=== PATIENT | male | born 1950 | race Caucasian/White ===

== ENCOUNTER 2022-02-13 11:00 | Outpatient (RCR) | payer OTHER, SELFPAY | END 2022-03-20 09:55 | disposition home or self-care (01) | LOC: OT 11:00 | PROVIDERS: PCP Surgery; Visit Provider Orthopaedic Surgery Adult Reconstructive Orthopaedic Surgery | DX: M75.41 Impingement syndrome of right shoulder (principal) | CPT/HCPCS: 97010; 97014; 97110; 97140; 97164; 97165; 97530; G0283 ==

== ENCOUNTER 2025-02-15 14:44 | Emergency (ER) | payer OTHER, SELFPAY ==
[2025-02-15] VITALS (10 sets, daily range): BP systolic 102–147; BP diastolic 56–121; PULSE 57–91; RESP 13–26; TEMP 36.7–36.8; O2SAT 89–95; BMI 34.0
--- NOTE | 2025-02-15 14:49 | ED_ITS ---
<Statement entered by Severino Barclay MD - 02/15/25 20:23> TYRONE Attestation I was consulted by the TYRONE, and we discussed the complexity of problems being addressed. I approved the treatment and management plan for this patient's care in the emergency department, thus performing a substantial portion of the medical decision making. Severino Barclay MD Discharge Plan Disposition Patient Disposition: Home, Self-Care Condition: Good Prescriptions Prescriptions: New methocarbamol 750 mg tablet 750 mg PO Q6H PRN (Reason: muscle spasm) Qty: 20 0RF lidocaine 5 % adhesive patch,medicated 1 patch topical DAILY Qty: 30 0RF Rx Instructions: leave on most painful area for up to 12 hrs Referrals Follow up/Referrals: Shira Robbins APRN [Primary Care Provider] - See instructions Activity Restrictions/Add. Instructions Additional Instructions/Restrictions: As we discussed the neurosurgery team at recommended a repeat CAT scan in 1 week to evaluate the stability of your subdural hemorrhage. If you have any change in your level of consciousness awareness intractable headache intractable vomiting return to the emergency department. I have sent in a Lidoderm patch and muscle relaxer for your left posterior thoracic pain. Also recommend taking Tylenol. I do not recommend ibuprofen and you please hold your aspirin until your repeat scan. If you have continued new or worsening signs or symptoms follow-up with your PCP or return to the ER as needed. Clinical Impressions Clinical Impression: Subarachnoid hemorrhage Left-sided thoracic back pain Qualifiers: Chronicity: acute Qualified Code(s): M54.6 - Pain in thoracic spine Fall Qualifiers: Encounter type: initial encounter Qualified Code(s): W19.XXXA - Unspecified fall, initial encounter Instructions Patient Instructions: DI for Stroke-Subarachnoid Hemorrhage Print Language Print Language: Indonesian Discharge ED Provider: Severino Barclay General Adult HPI General Chief complaint: Fall Stated complaint: AO 02/13/25 L side pain. Time Seen by Provider: 02/15/25 14:49 History of Present Illness HPI narrative: Patient presents for evaluation of left-sided thoracic back pain. Patient was on a riding lawnmower and slid off of it. He was not struck by the lawnmower however he ended up sliding down a hill on his left side. He initially thought he suffered no injury however in the 3 days since he has had increasing posterior thoracic left-sided pain. He denies any loss of consciousness head injury C-spine tenderness any difficulty walking in a painful walking shortness of breath fever chills hemoptysis hematochezia melena nausea vomiting diarrhea. He does have a history of COPD but is not on home O2. He does have a home nebulizer machine that he can utilize but does not have to use it all the time. Related Data Previous Rx's ?Medication ?Instructions ?Recorded lidocaine 5 % topical patch 1 patch topical DAILY #30 ea 02/15/25 methocarbamol 750 mg tablet 750 mg PO Q6H PRN muscle spasm #20 02/15/25 tabs Allergies Allergy/AdvReac Type Severity Reaction Status Date / Time IODINE Allergy Severe SHOCK Uncoded 10/15/17 14:06 PENICILLIN Allergy Intermediate I-HIVES Uncoded 10/15/17 14:06 [facility] Disclaimer: The information contained in this section may have been updated after the patient was seen, as this information can be updated by other users. Social History (Updated 02/15/25 @ 19:22 by KADI Suarez) Smoking Status: Current every day smoker alcohol intake: never current occupational status: retired Travel in the last 8 weeks: None Have you lived/traveled outside [place] in past 30 days?: No Contact w/someone who lives/traveled outside US past 30 days?: No Exposure to someone with infectious disease in past 14 days?: No Do you have a fever (greater than 100.4 F or 38 C)?: No Have you tested positive for COVID-19: No Exposed to someone with COVID-19 in past 14 days?: No Do you have a sore throat?: No Do you have a cough?: No Do you have any weakness?: No Do you have any diarrhea?: No Are you experiencing any unusual bleeding?: No Do you have any muscle aches/pain?: No Do you have any abdominal pain?: No Are you experiencing loss of taste or smell?: No ROS Obtained: Yes Systems reviewed as appropriate & no additional complaints except as documented Physical Exam General General appearance: alert and in no apparent distress Respiratory Respiratory exam: Absent respiratory distress, wheezes or accessory muscle use Cardiovascular Cardiovascular exam: Present regular rate Neurological Exam Neurological exam: Present alert, oriented X3, CN II-XII intact and normal gait; Absent motor sensory deficit Medical Decision Making Medical Records Medical records reviewed: Yes I reviewed the patient's medical records. Screening: Per USPSTF and CDC recommendations, given the prevalence of disease in our region, it is our hospital?s policy to screen for HIV and viral Hepatitis for all patients aged 18 and over and those with ongoing risk factors. Kirk Inquiry Pt receiving controlled substance: No Vital Signs: 02/15/25 14:45 02/15/25 14:54 02/15/25 14:57 Temperature 98.3 F Temperature Source Oral Pulse Rate 66 85 Pulse Rate [Right] 91 H Respiratory Rate 26 H Blood Pressure 141/121 H 147/89 H Blood Pressure [Right Arm] 141/85 H Blood Pressure Mean [Right Arm] 103 Blood Pressure Source [Right Arm] Automatic Cuff 02 Sat by Pulse Oximetry 91 L 93 L 92 L Oxygen Delivery Method Room Air Room Air Room Air 02/15/25 15:01 02/15/25 16:00 02/15/25 16:31 Temperature Temperature Source Pulse Rate 81 66 81 Pulse Rate [Right] Respiratory Rate Blood Pressure 139/82 125/63 106/64 L Blood Pressure [Right Arm] Blood Pressure Mean [Right Arm] Blood Pressure Source [Right Arm] 02 Sat by Pulse Oximetry 92 L 90 L 89 L Oxygen Delivery Method Room Air Room Air Room Air 02/15/25 17:00 02/15/25 17:30 02/15/25 18:36 Temperature Temperature Source Pulse Rate 59 L 57 L 71 Pulse Rate [Right] Respiratory Rate Blood Pressure 102/56 L 114/65 138/61 Blood Pressure [Right Arm] Blood Pressure Mean [Right Arm] Blood Pressure Source [Right Arm] 02 Sat by Pulse Oximetry 91 L 91 L 93 L Oxygen Delivery Method Room Air Room Air Room Air 02/15/25 19:04 Temperature 98.0 F Temperature Source Pulse Rate 76 Pulse Rate [Right] Respiratory Rate 13 Blood Pressure 138/61 Blood Pressure [Right Arm] Blood Pressure Mean [Right Arm] Blood Pressure Source [Right Arm] 02 Sat by Pulse Oximetry Oxygen Delivery Method Lab Data Lab results reviewed: Yes I reviewed the patient's lab results. Lab Results 02/15/25 15:41: WBC 11.4 H, RBC 4.50 L, Hgb 14.4, Hct 43.6, MCV 96.9 H, MCH 32.0 H, MCHC 33.0, RDW 13.1, Plt Count 245, MPV 10.5 H, Neut % (Auto) 74.3, Lymph % (Auto) 14.3, [place] % (Auto) 7.9, Eos % (Auto) 2.8, Baso % (Auto) 0.5, Neut # (Auto) 8.5 H, Lymph # (Auto) 1.6, [place] # (Auto) 0.9, Eos # (Auto) 0.3, Baso # (Auto) 0.1, PT 11.3, INR 1.01, D-Dimer 1.31 H, Sodium 139, Potassium 4.3, Chloride 102, Carbon Dioxide 30, Anion Gap 11.3, BUN 12, Creatinine 1.00, Estimated Creat Clear 93, Estimated GFR 73, Est GFR ( Amer) 88, Glucose 115 H, Calcium 9.2, Total Bilirubin 0.8, AST 30, ALT 23, Alkaline Phosphatase 82, NT-Pro-B Natriuret Pep 475 H, Total Protein 7.6, Albumin 4.2, Globulin 3.4 H , Albumin/Globulin Ratio 1.2, HCV Ab REJI w/Rflx PCR Qn Negative, HIV Ag/Ab Combo Qual Negative 02/15/25 15:41 02/15/25 15:41 Orders (Tests/Meds): ED MEDICATIONS Discontinued Medications Generic Name Dose Route Start Last Admin Trade Name Freq PRN Reason Stop Dose Admin Acetaminophen 1,000 mg 02/15/25 14:58 02/15/25 15:45 Acetaminophen 500mg Tab PO 02/15/25 14:59 1,000 mg ONCE ONE Administration Lidocaine 1 each 02/15/25 15:25 02/15/25 15:45 Lidocaine 5% Transdermal Patch TD 02/15/25 15:26 1 each ONCE ONE Administration Oxycodone HCl 5 mg 02/15/25 15:43 02/15/25 15:47 Oxycodone 5mg Immediate Release Tablet PO 02/15/25 15:44 5 mg ONCE ONE Administration ORDERS Category Date Time Status CT abdomen pelvis wo con Stat Cat Scan 02/15/25 15:[address] cervical spine wo con Stat Cat Scan 02/15/25 15:[address] chest wo con Stat Cat Scan 02/15/25 14:[address] head/brain wo con Stat Cat Scan 02/15/25 15:[address] lumbar spine wo con Stat Cat Scan 02/15/25 15:[address] thoracic spine wo con Stat Cat Scan 02/15/25 15:00 Completed BNP [NT Pro Brain Natriuretic Pep.] Stat Lab 02/15/25 15:41 Completed CBC w/Auto Diff [Complete Blood Count Auto Diff] Stat Lab 02/15/25 15:41 Completed CMP [Comprehensive Metabolic Panel] Stat Lab 02/15/25 15:41 Completed D-Dimer Stat Lab 02/15/25 15:41 Completed HIV Combo Stat Lab 02/15/25 15:41 Completed Hepatitis C Ab Qual. W/ RFX Stat Lab 02/15/25 15:41 Completed INR [Prothrombin Time INR] Stat Lab 02/15/25 15:41 Completed Medical Decision Narrative: In summary patient is a 74-year-old male who presents to the emergency department for evaluation of evaluation of a fall after falling off his lawnmower. Patient is hemodynamically stable with a blood pressure 141/85 heart rate 91 breathing 26 times a minute on arrival satting at 91% on room air upon arrival, afebrile. Physical exam is remarkable for a [place]er Coma Score 15 patient is awake alert and oriented person place and circumstance cranial nerves II through XII are intact grossly to exam patient has no C-spine tenderness has full range of motion of the C-spine and [place] C-spine and head injury rules this cleared, [place] of the chest reveals no anterior chest wall tenderness and patient has an expiratory wheezes in all 4 montes but no increased work of breathing or accessory muscle use, examination abdomen feels to be soft nontender no rebound no guarding no rigidity normal bowel sounds, patient has full range of motion of all 4 extremities however he does have a resting tremor on the right upper and lower extremity. Patient can ambulate in the emergency department without assistance with no gait abnormalities. Examination of the dorsal spine reveals no evidence of contusions abrasions ecchymosis palpable bony deformity. He is tender in the left posterior thoracic rib cage but no palpable bony deformity noted.. Differential diagnosis includes head injury versus C-spine injury versus spinal fracture versus rib fracture versus lung contusion etc. Initial workup will be conducted with noncontrasted scans of the head neck chest abdomen and dorsal spine. Patient has an iodine allergy that is reported as shock thus contrasted studies were deferred. Initial interventions include Tylenol and lidocaine patch initially. Initial workup reviewed by me and my informal interpretation of his imaging shows no acute bony abnormality however formal radiology read reads a 2 to 3 mm right parafalcine subdural arachnoid hemorrhage. Upon repeat evaluation patient remains with a Binu Coma Score 15 with no headache no nausea no vomiting and reports that his pain is much improved after Lidoderm and Tylenol. Given this I had an interactive discussion with Dr. Morris neurosurgery attending at the [facility] regarding patient presentation is ALMANZAR and patient management. Dr. Morris stated that 3 days post injury that no further immediate observation or imaging is required however patient should hold his aspirin and have a repeat CT scan in 1 week as an outpatient and recommended strict return precautions for closed head injury. Given that patient is appropriate for discharge with close head injury precautions and close follow-up with his PCP for repeat CT scan of the brain in 1 week. Patient and family verbalized understanding and agreement. You will also be given a prescription for Lidoderm and Robaxin. Critical Care Critical Care Time Critical Care Time: Yes Attestation: On 02/15/25, the high probability of a clinically significant, sudden or life threatening deterioration of the following system(s) required my full and direct attention, intervention and personal management. The time I documented below is in addition to time spent performing reported procedures but includes the following listed in this critical care notation. Total Time Total Critical Care Time: 35
--- NOTE | 2025-02-15 14:58 | CT_ITS ---
FINAL REPORT TECHNIQUE: Thin section axial images were obtained from the lung apices through the upper abdomen without contrast. This study was performed with techniques to keep radiation doses as low as reasonably achievable (ALARA). Individualized dose reduction techniques using automated exposure control or adjustment of mA and/or kV according to the patient's size were employed. CLINICAL HISTORY: thrown from a lawnmower FINDINGS: There is no mediastinal, hilar, or axillary lymphadenopathy. No pleural or pericardial effusion. The lungs are clear. Linear opacities in both lung bases are likely related to atelectasis. There is no suspicious pulmonary nodule. There is no consolidation. There is no pneumothorax.. There is no acute osseous abnormality. IMPRESSION: No acute intrathoracic abnormality. Reviewed, Interpreted and Dictated by Ysabel Farris MD Transcribed by Mickie Barakat Authenticated and [facility]
--- NOTE | 2025-02-15 15:00 | CT_ITS ---
FINAL REPORT TECHNIQUE: Thin section axial images were obtained through the thoracic spine without contrast. Sagittal and coronal images were obtained from the axial data. CLINICAL HISTORY: thrown from a lawnmower FINDINGS: There is no acute fracture of the thoracic spine. There is no malalignment. There is anterolisthesis of T1 on T2 which is likely degenerative. There is multilevel degenerative disc disease with disc space narrowing and osteophyte formation.. No acute paraspinal abnormality is identified. IMPRESSION: No acute osseous abnormality of the thoracic spine. Degenerative disc disease. Reviewed, Interpreted and Dictated by Ysabel Farris MD Transcribed by Mickie Barakat Authenticated and [facility]
--- NOTE | 2025-02-15 15:00 | CT_ITS ---
FINAL REPORT TECHNIQUE: Thin section axial images were obtained through the lumbar spine without contrast. Sagittal and coronal reconstruction images were obtained from the axial data. Exam was performed using dose reduction techniques. CLINICAL HISTORY: thrown from a lawnmower FINDINGS: There is a limbus vertebra at L4. There is no acute fracture. There is grade 1 anterior spondylolisthesis of L4 on L5. Alignment is otherwise normal. Vertebral body height is preserved. There is mild multilevel degenerative disease most pronounced at L4-5 and L5-S1. There is no significant central stenosis. Paraspinal soft tissues are within normal limits. There is no paraspinal mass or fluid collection. IMPRESSION: No acute osseous abnormality of the lumbar spine. Grade 1 anterior spondylolisthesis and degenerative disc disease. Reviewed, Interpreted and Dictated by Ysabel Farris MD Transcribed by Mickie Barakat Authenticated and . [facility]
--- NOTE | 2025-02-15 15:00 | CT_ITS ---
FINAL REPORT TECHNIQUE: Thin section axial images were obtained from skull base to vertex without contrast. Coronal and sagittal reconstruction images were obtained from the axial data. Exam was performed using dose reduction techniques such as automated exposure control, adjustment of the mA and kV according to patient size, and use of iterative reconstruction technique. CLINICAL HISTORY: Throat from a lawnmower COMPARISON: None FINDINGS: No mass effect or midline shift. There may be a very small right parafalcine subdural hemorrhage measuring 2-3 mm as seen on axial image #52. There is no additional area of hemorrhage identified. There is mild atrophy noted. No hydrocephalus. The basilar cisterns are preserved. The posterior fossa is without acute abnormality. The soft tissues are without acute abnormality. No acute osseous abnormality is identified. IMPRESSION: Questionable very small right parafalcine subdural hemorrhage, otherwise no acute abnormality. Consider short interval follow-up exam in 24 to 48 hours. Reviewed, Interpreted and Dictated by Ysabel Farris MD Transcribed by Inna Hoffmann Authenticated and . [facility]
--- NOTE | 2025-02-15 15:00 | CT_ITS ---
FINAL REPORT TECHNIQUE: Thin section axial images were obtained through the cervical spine without contrast. Multiplanar reconstruction images were obtained from the axial data. Exam was performed using dose reduction techniques. CLINICAL HISTORY: thrown from a lawnmower FINDINGS: There is no acute fracture or acute malalignment of the cervical spine. There is no evidence of unilateral or bilateral facet lock. Vertebral body height is preserved. There is anterolisthesis of C4 on C5 which is likely degenerative. There is multilevel degenerative disc disease most pronounced at C5-6 and C6-7. No acute paraspinal abnormality is identified. IMPRESSION: No acute osseous abnormality of the cervical spine. Degenerative disc disease. Reviewed, Interpreted and Dictated by Ysabel Farris MD Transcribed by Mickie Barakat Authenticated and [facility]
--- NOTE | 2025-02-15 15:18 | CT_ITS ---
FINAL REPORT TECHNIQUE: Thin section axial images were obtained from the lung bases to the pubic symphysis without IV contrast. Coronal reconstruction images were obtained from the axial data. Exam was performed using dose reduction technique. CLINICAL HISTORY: thrown from a lawnmower FINDINGS: There is a tiny nonobstructing left renal stone. There is no hydronephrosis or perinephric stranding. The gallbladder is present. The remaining unenhanced solid abdominal organs are unremarkable. There is a 3.1 cm abdominal aortic aneurysm. There is no evidence of small bowel obstruction. The appendix is normal. GI tract is without acute abnormality. There is no lymphadenopathy or ascites. No acute osseous abnormality is identified. IMPRESSION: No acute abnormality in the abdomen or pelvis on this unenhanced exam. Nonobstructing left renal stone. Reviewed, Interpreted and Dictated by Ysabel Farris MD Transcribed by Mickie Barakat Authenticated and [facility]
[2025-02-15] MEDS: LIDOCAINE 5% TRANSDERMAL PATCH 1 EACH TD (15:45)
[2025-02-15] MEDS: ACETAMINOPHEN 500MG TAB 1000 MG PO (15:45)
[2025-02-15] MEDS: OXYCODONE 5MG IMMEDIATE RELEASE TABLET 5 MG PO (15:47)
[2025-02-15 15:50] LABS: Basophils # 0.1 K/mm3 (0-0.2); Basophils % 0.5 % (0.1-2.0); Eosinophils # 0.3 Kmm3 (0.0-0.4); Eosinophils % 2.8 % (0.1-12.0); Hematocrit 43.6 % (42.0-52.0); Hemoglobin 14.4 g/dL (14.1-18.0); Lymphocytes # 1.6 K/mm3 (0.7-4.5); Lymphocytes % 14.3 % (10-50); Mean Corpuscular Volume 96.9 fl (80-94); Mean Platelet Volume 10.5 fl (7.4-10.4); Monocytes # 0.9 K/mm3 (0.1-1.0); Monocytes % 7.9 % (1.7-9.3); Neutrophils # 8.5 K/mm3 (1.8-7.8); Neutrophils % 74.3 % (37.0-80.0); Nucleated Red Blood Cells # 0 10^3/uL; Nucleated Red Blood Cells % 0 %; Platelet Count 245 K/mm3 (142-424); Red Cell Distribution Width 13.1 % (11.5-17.5); Red Cell Distribution Width-SD 46.8 fL; White Blood Count 11.4 K/mm3 (4.8-10.8)
[2025-02-15 16:03] LABS: Albumin Level 4.2 g/dl (3.5-5.0); Chloride 102 mmol/L (98-107); INR 1.01 (0.9-1.1); Potassium 4.3 mmoL/L (3.5-5.1); Prothrombin Time 11.3 seconds (10.1-12.5); Sodium 139 mmol/L (136-145)
[2025-02-15 16:06] LABS: Alanine Aminotransferase 23 U/L (12-78); Albumin/Globulin Ratio 1.2 (1.1-1.8); Alkaline Phosphatase 82 U/L (38-126); Anion Gap 11.3 mEq/L (5-15); Aspartate Amino Transferase 30 U/L (17-59); Bilirubin,Total 0.8 mg/dl (0.2-1.3); Blood Urea Nitrogen 12 mg/dl (9-20); Carbon Dioxide 30 mmol/L (22.0-30.0); Creatinine Clearance Estimated 93 mL/min (50-200); Estimated Glomerular Filt Rate 73 ml/min (>60); GFR (African American) 88 ML/MIN (>60); Globulin 3.4 g/dL (1.3-3.2); Total Protein,Serum 7.6 g/dl (6.3-8.2)
[2025-02-15 16:07] LABS: Calcium 9.2 mg/dl (8.4-10.2); Glucose 115 mg/dl (74-100)
[2025-02-15 16:14] LABS: NT Pro Brain Natriuretic Pep. 475 pg/mL (0-450)
[2025-02-15 16:19] LABS: D-Dimer 1.31 ug/mL (0.0-0.5)
[2025-02-15 17:25] LABS: Hepatitis C Ab Qual. W/ RFX NEGATIVE (Negative)
--- NOTE | 2025-02-15 17:30 | PC.NURSE ---
KADI Barton asked for images to be powershared to [facility]
[2025-02-15 17:39] LABS: HIV Combo NEGATIVE (Negative)
--- NOTE | 2025-02-15 18:20 | PC.NURSE ---
Called [facility] per KADI Barton about transferring this pt to . has me on hold while they are paging the hospitalist. is speaking with KADI Barton at this time
== END 2025-02-15 19:05 | disposition home or self-care (01) ==
PROVIDERS: Physician Assistant; Emergency Provider Student in an Organized Health Care Education/Training Program; PCP Nurse Practitioner
DX: S06.6X0A Traumatic subarachnoid hemorrhage without loss of consciousness, initial encounter (principal); M54.6 Pain in thoracic spine; Z11.59 Encounter for screening for other viral diseases; Z11.4 Encounter for screening for human immunodeficiency virus [HIV]; W17.81XA Fall down embankment (hill), initial encounter
CPT/HCPCS: 70450; 71250; 72125; 72128; 72131; 74176; 80053; 83880; 85025; 85378; 85610; 86803; 87389; 99291

== ENCOUNTER 2025-03-01 07:21 | Outpatient (CLI) | payer OTHER, SELFPAY ==
--- NOTE | 2025-03-01 07:27 | CT_ITS ---
FINAL REPORT TECHNIQUE: Thin section axial images were obtained from skull base to vertex without contrast. Coronal reconstruction images were obtained from the axial data. Exam was performed using dose reduction techniques such as automated exposure control, adjustment of the mA and kV according to patient size, and use of iterative reconstruction technique. CLINICAL HISTORY: INJURY OF HEAD. 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 COMPARISON: 02/15/2025 FINDINGS: There is no mass effect or midline shift. There is no hydrocephalus. The previously seen very small parafalcine hemorrhage has resolved. No new hemorrhage identified. The posterior fossa is without acute abnormality. The basilar cisterns are preserved. No new abnormality identified. The soft tissues are without acute abnormality. No acute osseous abnormality is identified. IMPRESSION: Interval resolution previously seen small subdural hemorrhage without new abnormality. Reviewed, Interpreted and Dictated by Ysabel Farris MD Transcribed by Aparna Hensley Authenticated and [facility]
== END 2025-03-01 23:59 | disposition home or self-care (01) ==
LOC: RAD 07:22
PROVIDERS: PCP Nurse Practitioner; Visit Provider Nurse Practitioner
DX: S09.90XA Unspecified injury of head, initial encounter (principal)
CPT/HCPCS: 70450